=== PATIENT | female | born 1955 | race Caucasian/White ===

== ENCOUNTER 2022-08-22 13:38 | Inpatient (IN) | payer MEDICARE, OTHER ==
[~2022-08-22] VITALS: Ht 167.6 cm; Wt 54.9 kg
--- NOTE | 2022-08-22 14:40 | NUR ---
Attempted to give report to [facility], charge nurse stated the assigned nurse will call back for report.
--- NOTE | 2022-08-22 15:00 | NUR ---
Attempted to give telephone report to M[facility], there was no answer.
--- NOTE | 2022-08-22 15:15 | NUR ---
Gave report to AUGUSTINE Shen.
--- NOTE | 2022-08-22 15:35 | NUR ---
Patient transferred to MHU accompanied by RN.
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
[2022-08-22] MEDS ORDERED: MAGNESIUM HYDROXIDE 30 ML LIQUID UDC PO PRN (16:30)
[2022-08-22] MEDS ORDERED: MAG HYDROX/AL HYDROX/SIMETH 30 ML LIQUID UDC PO PRN (16:30)
[2022-08-22 16:40] VITALS: BP 117/65
[2022-08-22] MEDS: LORAZEPAM 0.5 MG TABLET PO PRN (18:14)
[2022-08-22] MEDS: ACETAMINOPHEN 325 MG TABLET PO PRN (18:14)
[2022-08-22] MEDS ORDERED: QUET400T PO (18:38)
[2022-08-22] MEDS ORDERED: LAMO100T2 PO (18:38)
[2022-08-22] MEDS ORDERED: TIZA4TAB11 PO (18:38)
[2022-08-22] MEDS ORDERED: GABA300C PO (18:38)
[2022-08-22] MEDS ORDERED: AMIT50TA17 PO (18:38)
[2022-08-22] MEDS ORDERED: HYDR4TAB4 PO (18:38)
[2022-08-22 20:03] VITALS: BP 126/64
[2022-08-23] MEDS: ACETAMINOPHEN 325 MG TABLET PO PRN (01:55)
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
[2022-08-23 07:23] LABS: HEMATOCRIT 34.9 % (31.2-41.9); MEAN CORPUSCULAR HEMOGLOBIN 34.7 uug (24.7-32.8); MEAN CORPUSCULAR VOLUME 98.7 fL (75.5-95.3); PLATELET COUNT (AUTO) 382 K/uL (179-408)
[2022-08-23 07:30] VITALS: BP 149/69
[2022-08-23 07:39] LABS: BILIRUBIN,TOTAL 0.4 mg/dL (0.2-1.0); CREATININE 0.7 mg/dL (0.6-1.3); POTASSIUM 3.9 mmol/L (3.5-5.1); TOTAL PROTEIN, SERUM 6.8 g/dL (6.4-8.2)
[2022-08-23] MEDS ORDERED: GABAPENTIN 300 MG CAPSULE PO SCH (09:00)
[2022-08-23] MEDS ORDERED: LAMOTRIGINE 100 MG TABLET PO ONE (09:00)
[2022-08-23] MEDS: TIZANIDINE HCL 4 MG TABLET PO SCH ×3 (09:14→17:53)
[2022-08-23] MEDS: GABAPENTIN 300 MG CAPSULE PO SCH ×3 (09:14→17:53)
[2022-08-23] MEDS ORDERED: HYDROMORPHONE HCL PO PRN (11:30)
[2022-08-23] MEDS ORDERED: ALBU2.5V38 IH (13:50)
[2022-08-23] MEDS ORDERED: ENOX30DI SUBCUT (13:50)
--- NOTE | 2022-08-23 14:56 | NUR ---
PT APOLOGIZED TO NURSE AND HAD DIET CHANGED TO MECHANICAL SOFT DIET. NO SIGNS OF DISTRESS OR ASPIRATION FROM FOOD. PT IS MORE COOPERATIVE WITH ROOM MATE AND STAFF. PT IS NOT ISOLATIVE BEFORE. PT WAS SEEN BY DR. ROY HE CONTINUE MEDICATION FROM HOSPITAL . FALL AND SAFETY PRECAUTION MAINTAINED. WILL ENDORSE TO EVENING NURSE.
--- NOTE | 2022-08-23 15:12 | NUR ---
TRISTAN Family Contact: TRISTAN briefly spoke with pt's son, Ac ([phone]). It is unclear at this time if pt is cleared to return home on her own. TRISTAN will continue to contact Ac.
[2022-08-23 16:00] VITALS: BP 113/51
[2022-08-23] MEDS: LAMOTRIGINE 100 MG TABLET PO SCH (17:53)
[2022-08-23] MEDS: QUETIAPINE FUMARATE 100 MG TABLET PO SCH ×2 (17:53→21:20)
[2022-08-23 20:14] VITALS: BP 150/55
[2022-08-24] MEDS: HYDROMORPHONE HCL 2 MG TABLET PO PRN ×2 (01:24→22:29)
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
[2022-08-24] MEDS: ACETAMINOPHEN 325 MG TABLET PO PRN ×2 (03:02→14:30)
[2022-08-24 07:30] VITALS: BP 128/68
[2022-08-24] MEDS: LORAZEPAM 0.5 MG TABLET PO PRN (07:30)
[2022-08-24] MEDS: TIZANIDINE HCL 4 MG TABLET PO SCH ×3 (11:47→17:11)
[2022-08-24] MEDS: GABAPENTIN 300 MG CAPSULE PO SCH ×3 (11:47→17:11)
[2022-08-24] MEDS: LAMOTRIGINE 100 MG TABLET PO SCH ×2 (11:47→17:11)
[2022-08-24] MEDS: QUETIAPINE FUMARATE 100 MG TABLET PO SCH ×2 (11:48→21:07)
[2022-08-24 16:00] VITALS: BP 100/47
--- NOTE | 2022-08-24 18:39 | NUR ---
0730-REC'D PATIENT IN BED, AWAKE, ALERT, ABLE TO VERBALIZE HER NEEDS, FOLLOWS SIMPLE DIRECTIONS. DENIES ANY PAIN AT THIS TIME. OFFERED ORAL FLUIDS AND TAKEN WELL. PATIENT AMBULATES AD INDIO IN HALLWAY UNIT, SELF CARE, CONTINENT W/ BRP, ASSIST NEEDED. ENCOURAGED AND OFFERED ASSIST NEEDED. WILL MONITOR CLOSELY. 0900-SCHEDULED/DUE MEDICATION ADMINISTERED WITH NO ASE NOTED, ORAL FLUIDS TAKEN WELL. PATIENT ATE HER BREAKFAST, DENIES GI DISCOMFORT AND AMBULATORY IN THE HALLWAY, VISIBLE IN UNIT AT ALL TIMES. 1500-PATIENT OOB, PARTICIPATING IN PLANNED ACTIVITIES WITH OTHER PATIENTS IN THE UNIT, SOCIALIZES WITH NURSING STAFF, WHEREABOUTS MONITOR FOR SAFETY. ASSIST NEEDED DURING SHIFT. PATIENT COOPERATIVE WITH CARE AND TREATMENT. ALL NEEDS ANTICIPATED AND MET, NO UNUSUAL EVENTS DURING SHIFT. ENDORSED TO INCOMING NOC RELIEVING NURSE.
[2022-08-24 20:18] VITALS: BP 101/52
--- NOTE | 2022-08-24 20:30 | NUR ---
RECEIVED PATIENT SLEEPING IN HER BED. SHE IS EASILY AROUSABLE UPON APPROACHED. SHE IS A/O X 4 ABLE TO VERBALIZED HER FEELINGS. SHE DENIED SI/HI//AH/ SHE IS NOTED HYPERVERBAL AT TIMES BUT SHE IS REDIRECTABLE. SHE WAS GIVEN PO FLUIDS AND SNACKS. HER V/S ARE STABLE, SHE IS REASSURED FOR HER SAFETY. SAFETY AND FALL PRECAUTIONS ARE IN PLACE. WILL CONTINUE TO MONITOR.
[2022-08-25] MEDS: ZOLPIDEM 5 MG TABLET PO PRN (00:40)
[2022-08-25] MEDS: HYDROMORPHONE HCL 2 MG TABLET PO PRN ×2 (06:28→14:19)
[2022-08-25 07:30] VITALS: BP 131/64
[2022-08-25] MEDS: QUETIAPINE FUMARATE 100 MG TABLET PO SCH ×2 (08:45→20:58)
[2022-08-25] MEDS: LAMOTRIGINE 100 MG TABLET PO SCH ×2 (08:45→17:03)
[2022-08-25] MEDS: GABAPENTIN 300 MG CAPSULE PO SCH ×3 (08:45→17:03)
[2022-08-25] MEDS: TIZANIDINE HCL 4 MG TABLET PO SCH ×3 (09:15→17:03)
[2022-08-25] MEDS: ENSURE ENLIVE (VAN) 240 ML LIQUID PO SCH (09:15)
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
--- NOTE | 2022-08-25 12:14 | NUR ---
TRISTAN Initial Discharge Note: [place] [address] [place] [address] ([phone]). TRISTAN spoke with pt's son, Ac regarding pt's discharge plan. It is unclear at this time if pt is cleared to return home on her own. TRISTAN will continue to work with pt, family and MD to ensure a safe and proper discharge plan.
--- NOTE | 2022-08-25 12:16 | NUR ---
Firearms Report: [employer] Art Teacher completed and submitted a [employer] firearms report for 5150 a danger to others and grave disability certifications. A copy of report has been placed in patient chart.
[2022-08-25 16:54] VITALS: BP 152/75
[2022-08-25] MEDS: ACETAMINOPHEN 325 MG TABLET PO PRN ×2 (18:23→20:58)
[2022-08-25 20:43] VITALS: BP 145/75
[2022-08-26] MEDS: LORAZEPAM 0.5 MG TABLET PO PRN ×2 (00:29→06:57)
[2022-08-26] MEDS: ZOLPIDEM 5 MG TABLET PO PRN (00:30)
--- NOTE | 2022-08-26 03:42 | NUR ---
Although pt is AOx3, pt can display anxiousness at times. Education is needed to help alleviate this condition. Pt complained of headaches during the first half of this shift. Gave Tylenol prn. Although medication was effective, pt also asked for medications to help treat her anxiety and sleeplessness. Gave Ativan and Ambien prn. Medications were effective, and these issues were corrected during this shift.
[2022-08-26] MEDS: ACETAMINOPHEN 325 MG TABLET PO PRN (06:57)
[2022-08-26 08:04] VITALS: BP 169/81
[2022-08-26] MEDS: GABAPENTIN 300 MG CAPSULE PO SCH ×3 (08:25→16:46)
[2022-08-26] MEDS: QUETIAPINE FUMARATE 100 MG TABLET PO SCH ×2 (08:25→20:18)
[2022-08-26] MEDS: LAMOTRIGINE 100 MG TABLET PO SCH ×2 (08:25→16:47)
[2022-08-26] MEDS: TIZANIDINE HCL 4 MG TABLET PO SCH ×3 (08:25→16:47)
[2022-08-26] MEDS: ENSURE ENLIVE (VAN) 240 ML LIQUID PO SCH (08:38)
--- NOTE | 2022-08-26 14:20 | NUR ---
GPS: Nursing Notes: Thought Disorder: Patient is awake and responding to her name, depressed mood and anxious affect, gets easily anxious when redirected, needs prompting to participate in therapeutic groups, unable to formulate a viable plan for self care, continue to monitor for safety, continue with treatment plan.
[2022-08-26 16:14] VITALS: BP 112/48
[2022-08-26 19:53] VITALS: BP 152/67
[2022-08-26] MEDS: HYDROMORPHONE HCL 2 MG TABLET PO PRN (21:16)
[2022-08-27] MEDS: ACETAMINOPHEN 325 MG TABLET PO PRN ×3 (00:10→20:44)
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
[2022-08-27] MEDS: LORAZEPAM 0.5 MG TABLET PO PRN ×2 (05:00→20:44)
[2022-08-27 08:04] VITALS: BP 154/78
[2022-08-27] MEDS: LAMOTRIGINE 100 MG TABLET PO SCH ×2 (08:35→16:28)
[2022-08-27] MEDS: QUETIAPINE FUMARATE 100 MG TABLET PO SCH ×2 (08:35→20:44)
[2022-08-27] MEDS: TIZANIDINE HCL 4 MG TABLET PO SCH ×3 (08:35→16:28)
[2022-08-27] MEDS: GABAPENTIN 300 MG CAPSULE PO SCH ×3 (08:36→16:28)
[2022-08-27] MEDS: ENSURE ENLIVE (VAN) 240 ML LIQUID PO SCH (08:36)
--- NOTE | 2022-08-27 15:40 | NUR ---
GPS: Nursing Notes: Thought Disorder: Patient is awake and responding to her name, compliant with her medications, following staff directions, depressed mood and anxious affect, poor impulse control, believes that her roommate does not want her in the room, guarded, unable to formulate a viable plan for self care, impaired judgment, gets easily irritable when redirected, continue to monitor for safety, continue with treatment plan.
[2022-08-27 19:57] VITALS: BP 146/56
[2022-08-28] MEDS: ZOLPIDEM 5 MG TABLET PO PRN (02:06)
[2022-08-28 08:14] VITALS: BP 133/73
[2022-08-28] MEDS: ENSURE ENLIVE (VAN) 240 ML LIQUID PO SCH (08:27)
[2022-08-28] MEDS: TIZANIDINE HCL 4 MG TABLET PO SCH ×3 (08:27→17:21)
[2022-08-28] MEDS: GABAPENTIN 300 MG CAPSULE PO SCH ×3 (08:27→17:21)
[2022-08-28] MEDS: QUETIAPINE FUMARATE 100 MG TABLET PO SCH ×2 (08:27→20:47)
[2022-08-28] MEDS: LAMOTRIGINE 100 MG TABLET PO SCH ×2 (08:27→17:21)
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
[2022-08-28] MEDS: ACETAMINOPHEN 325 MG TABLET PO PRN (10:06)
[2022-08-28] MEDS: HYDROMORPHONE HCL 2 MG TABLET PO PRN ×2 (12:28→20:46)
--- NOTE | 2022-08-28 14:15 | NUR ---
GPS: Nursing Notes: Thought Disorder: Patient is awake and responding to her name, depressed mood and anxious affect, low energy level, participating in therapeutic groups, poor impulse control at times, unable to formulate a viable plan for self care, gets easily irritable when redirected, continue to monitor for safety, continue with treatment plan.
[2022-08-28 15:57] VITALS: BP 120/55
[2022-08-28 19:42] VITALS: BP 142/73
[2022-08-29] MEDS: LORAZEPAM 0.5 MG TABLET PO PRN ×2 (01:42→23:37)
[2022-08-29] MEDS: ZOLPIDEM 5 MG TABLET PO PRN ×2 (01:42→23:37)
[2022-08-29] MEDS: HYDROMORPHONE HCL 2 MG TABLET PO PRN (06:14)
[2022-08-29 08:12] VITALS: BP 127/62
[2022-08-29] MEDS: QUETIAPINE FUMARATE 100 MG TABLET PO SCH ×2 (08:52→21:14)
[2022-08-29] MEDS: TIZANIDINE HCL 4 MG TABLET PO SCH ×3 (08:52→17:09)
[2022-08-29] MEDS: GABAPENTIN 300 MG CAPSULE PO SCH ×3 (08:52→17:09)
[2022-08-29] MEDS: LAMOTRIGINE 100 MG TABLET PO SCH ×2 (08:52→17:09)
[2022-08-29] MEDS: ENSURE ENLIVE (VAN) 240 ML LIQUID PO SCH (08:53)
[2022-08-29] MEDS: ACETAMINOPHEN 325 MG TABLET PO PRN ×2 (11:43→21:08)
--- NOTE | 2022-08-29 12:03 | NUR ---
TRISTAN Family Contact: TRISTAN spoke with pt's son, Ac ([phone]) and discussed pt's discharge plan. Ac stated he can provide transportation for the pt's return home upon discharge everyday before 11am due to his work schedule. Ac is aware and agreeable with pt's current treatment and discharge plan.
--- NOTE | 2022-08-29 12:08 | NUR ---
Patient had court hearing today, branch sales and service representative gave 14 Day probable cause for GD only.
[2022-08-29 16:02] VITALS: BP 120/58
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
--- NOTE | 2022-08-29 17:25 | NUR ---
GPS: Nursing Notes: Thought Disorder: Patient is awake and responding to her name, impaired judgment, gets easily anxious when redirected, believes that water is coming from the window and the wall of her room, redirected during shift, cooperative with nursing care, participating in therapeutic, depressed mood and anxious affect, unable to formulate a viable plan for self care, continue to monitor for safety, continue with treatment plan.
[2022-08-29 20:17] VITALS: BP 139/64
[2022-08-30 07:30] VITALS: BP 137/68
[2022-08-30] MEDS: QUETIAPINE FUMARATE 100 MG TABLET PO SCH ×2 (09:00→20:36)
[2022-08-30] MEDS: GABAPENTIN 300 MG CAPSULE PO SCH ×3 (09:45→17:43)
[2022-08-30] MEDS: LAMOTRIGINE 100 MG TABLET PO SCH ×2 (09:45→17:43)
[2022-08-30] MEDS: ENSURE ENLIVE (VAN) 240 ML LIQUID PO SCH (09:45)
[2022-08-30] MEDS: TIZANIDINE HCL 4 MG TABLET PO SCH ×3 (09:47→17:43)
[2022-08-30] MEDS: HYDROMORPHONE HCL 2 MG TABLET PO PRN (09:53)
[2022-08-30] MEDS: ACETAMINOPHEN 325 MG TABLET PO PRN ×2 (14:36→20:36)
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
[2022-08-30 16:00] VITALS: BP 146/68
[2022-08-30 19:48] VITALS: BP 122/83
[2022-08-31] MEDS: ZOLPIDEM 5 MG TABLET PO PRN ×2 (01:39→23:03)
[2022-08-31 07:30] VITALS: BP 150/69
[2022-08-31] MEDS: LAMOTRIGINE 100 MG TABLET PO SCH ×2 (09:11→17:09)
[2022-08-31] MEDS: TIZANIDINE HCL 4 MG TABLET PO SCH ×3 (09:11→17:09)
[2022-08-31] MEDS: GABAPENTIN 300 MG CAPSULE PO SCH ×3 (09:11→17:09)
[2022-08-31] MEDS: ENSURE ENLIVE (VAN) 240 ML LIQUID PO SCH (09:11)
[2022-08-31] MEDS: QUETIAPINE FUMARATE 100 MG TABLET PO SCH ×2 (13:19→20:10)
[2022-08-31 16:00] VITALS: BP 143/77
[2022-08-31] MEDS: ACETAMINOPHEN 325 MG TABLET PO PRN (16:04)
[2022-08-31] MEDS: HYDROMORPHONE HCL 2 MG TABLET PO PRN (18:27)
[2022-08-31 20:09] VITALS: BP 131/59
[2022-09-01] MEDS: HYDROMORPHONE HCL 2 MG TABLET PO PRN ×3 (01:12→18:12)
[2022-09-01] MEDS: ACETAMINOPHEN 325 MG TABLET PO PRN (04:11)
--- NOTE | 2022-09-01 06:23 | NUR ---
GPS: Pt.slept poorly last night. Slept for only 2.15 last night despite receiving a sleeping pill for insomnia. Medicated prn for pain with relief. Safe environment provided. Seizure precautions observed. Needs attended. Behavior monitoring continues.
[2022-09-01 07:30] VITALS: BP 147/75
[2022-09-01] MEDS: GABAPENTIN 300 MG CAPSULE PO SCH ×3 (08:26→16:46)
[2022-09-01] MEDS: LAMOTRIGINE 100 MG TABLET PO SCH ×2 (08:26→16:46)
[2022-09-01] MEDS: ENSURE ENLIVE (VAN) 240 ML LIQUID PO SCH (08:27)
[2022-09-01] MEDS: TIZANIDINE HCL 4 MG TABLET PO SCH ×3 (08:27→16:53)
[2022-09-01] MEDS: QUETIAPINE FUMARATE 100 MG TABLET PO SCH ×2 (12:46→20:07)
[2022-09-01 20:04] VITALS: BP 125/45
[2022-09-01] MEDS: ZOLPIDEM 5 MG TABLET PO PRN (23:31)
--- NOTE | 2022-09-02 06:26 | NUR ---
GPS: Pt.slept 5.45 last night. Denies pain at this time when asked. Safe environment provided. Needs attended. Will continue to monitor.
[2022-09-02 07:51] VITALS: BP 158/78
[2022-09-02] MEDS: GABAPENTIN 300 MG CAPSULE PO SCH ×3 (08:47→17:00)
[2022-09-02] MEDS: LAMOTRIGINE 100 MG TABLET PO SCH ×2 (08:47→17:00)
[2022-09-02] MEDS: ENSURE ENLIVE (VAN) 240 ML LIQUID PO SCH (08:50)
[2022-09-02] MEDS: TIZANIDINE HCL 4 MG TABLET PO SCH ×3 (08:57→17:00)
[2022-09-02] MEDS: HYDROMORPHONE HCL 2 MG TABLET PO PRN ×3 (08:57→21:41)
[2022-09-02 09:00] VITALS: BP 126/62
[2022-09-02] MEDS: QUETIAPINE FUMARATE 100 MG TABLET PO SCH ×2 (12:31→21:12)
[2022-09-02 16:33] VITALS: BP 136/60
--- NOTE | 2022-09-02 18:37 | NUR ---
patient remain calm and cooperative. Dilaudid 2 mg po prn for pain given x2 through the shift ,and effective.continue plan of care.
[2022-09-02 20:00] VITALS: BP 124/70
--- NOTE | 2022-09-02 20:45 | NUR ---
RECEIVED PATIENT IN HER ROOM IN BED. SHE IS NOTED A/O X 3 ABLE TO VERBALIZED HER FEELINGS. SHE IS ABLE TO AMBULATE WITH STEADY GAIT. PATIENT NOTED FIXED ON HER PHYSICAL PAIN AND SHE KEEPS REMAINING THIS PRODUCE DEPARTMENT SUPERVISOR THAT SHE WILL SOON BE DUE FOR DILAUDID, AND THAT SHE USES MARIJUANA AT HOME FOR HER PAINS. SHE IS ALSO FIXED ON PEOPLE WHO THINK THEY TREATED HER "BAD" OR DID HER "WRONG". SHE IS INTRUSIVE AND DEMANDING AT TIMES BUT SHE IS REDIRECTABLE. SHE DENIED SI/HI/VH/AH SHE IS ABLE TO VERBALLY CFS. PATIENT IS REASSURED FOR HER SAFETY. SAFETY AND FALL PRECAUTIONS ARE IN PLACE. SHE WAS GIVEN PO FLUIDS AND SNACKS. ALL HER NEEDS ARE MET. WILL CONTINUE TO MONITOR.
[2022-09-03] MEDS: ZOLPIDEM 5 MG TABLET PO PRN ×2 (00:23→21:24)
[2022-09-03] MEDS: LAMOTRIGINE 100 MG TABLET PO SCH ×2 (08:22→16:21)
[2022-09-03] MEDS: TIZANIDINE HCL 4 MG TABLET PO SCH ×3 (08:22→16:21)
[2022-09-03] MEDS: GABAPENTIN 300 MG CAPSULE PO SCH ×3 (08:22→16:21)
[2022-09-03] MEDS: ENSURE ENLIVE (VAN) 240 ML LIQUID PO SCH (08:22)
[2022-09-03 08:23] VITALS: BP 153/73
[2022-09-03] MEDS: HYDROMORPHONE HCL 2 MG TABLET PO PRN (09:05)
[2022-09-03] MEDS: QUETIAPINE FUMARATE 100 MG TABLET PO SCH ×2 (12:24→21:23)
[2022-09-03 16:15] VITALS: BP 117/55
[2022-09-03 20:01] VITALS: BP 107/54
[2022-09-03] MEDS ORDERED: MIRTAZAPINE 15 MG TABLET PO SCH (21:00)
[2022-09-03] MEDS: LORAZEPAM 0.5 MG TABLET PO PRN (21:24)
--- NOTE | 2022-09-04 04:50 | NUR ---
Although overall compliant with care, pt still requests her prn medications Ativan and Ambien around 2200 hours.
[2022-09-04] MEDS: ENSURE ENLIVE (VAN) 240 ML LIQUID PO SCH (08:30)
[2022-09-04] MEDS: GABAPENTIN 300 MG CAPSULE PO SCH ×3 (08:30→17:20)
[2022-09-04] MEDS: LAMOTRIGINE 100 MG TABLET PO SCH ×2 (08:30→17:20)
[2022-09-04] MEDS: TIZANIDINE HCL 4 MG TABLET PO SCH ×3 (08:30→17:20)
[2022-09-04 09:05] VITALS: BP 140/87
[2022-09-04] MEDS: HYDROMORPHONE HCL 2 MG TABLET PO PRN (09:25)
[2022-09-04] MEDS: QUETIAPINE FUMARATE 100 MG TABLET PO SCH (12:16)
--- NOTE | 2022-09-04 15:10 | NUR ---
GPS: Nursing Note: Thought Disorder: Patient is awake and responding to her name, interactive with peers, participating in therapeutic groups, A/Ox4, compliant with her medications, gets easily anxious when redirected, believes that she is getting better, cooperative with nursing care, denies AH/VH, unable to formulate a viable plan for self care, continue to monitor for safety, continue with treatment plan.
--- NOTE | 2022-09-04 15:34 | NUR ---
TRISTAN Family Contact: TRISTAN spoke with pt's son, Ac [phone] and his partner Jesse [phone] regarding pt's discharge clearance for Sunday 9am by Ac's transportation home. Pt, Ac, and Jesse are aware and agreeable with the discharge plan.
[2022-09-04 16:16] VITALS: BP 134/74
[2022-09-04] MEDS: ACETAMINOPHEN 325 MG TABLET PO PRN (18:35)
[2022-09-04 19:45] VITALS: BP 118/69
[2022-09-04] MEDS: ZOLPIDEM 5 MG TABLET PO PRN (21:14)
[2022-09-04] MEDS: LORAZEPAM 0.5 MG TABLET PO PRN (21:14)
[2022-09-04] MEDS: QUETIAPINE FUMARATE 200 MG TABLET PO SCH (21:15)
[2022-09-04] MEDS: MIRTAZAPINE 15 MG TABLET PO SCH (21:15)
[2022-09-05 07:49] VITALS: BP 152/85
[2022-09-05] MEDS: GABAPENTIN 300 MG CAPSULE PO SCH ×3 (08:43→17:08)
[2022-09-05] MEDS: LAMOTRIGINE 100 MG TABLET PO SCH ×2 (08:43→17:08)
[2022-09-05] MEDS: TIZANIDINE HCL 4 MG TABLET PO SCH ×3 (08:43→17:07)
[2022-09-05] MEDS: ENSURE ENLIVE (VAN) 240 ML LIQUID PO SCH (08:44)
[2022-09-05] MEDS: HYDROMORPHONE HCL 2 MG TABLET PO PRN ×2 (08:59→13:25)
[2022-09-05] MEDS: QUETIAPINE FUMARATE 100 MG TABLET PO SCH (12:25)
[2022-09-05 15:14] VITALS: BP 114/71
--- NOTE | 2022-09-05 17:20 | NUR ---
GPS: Nursing Note: Thought Disorder: Received Patient awake and A/Ox3. Compliant with her medications and following staff directions. Patient gets easily anxious, but she is redirectable. Patient attends group activities and Interacts with peers. Patient denies AH/VH. Cooperative with Nursing Care, but unable to formulate viable plan for self care. Continue to monitor for safety, continue with treatment plan .
[2022-09-05 19:48] VITALS: BP 137/74
[2022-09-05] MEDS: LORAZEPAM 0.5 MG TABLET PO PRN (20:49)
[2022-09-05] MEDS: ZOLPIDEM 5 MG TABLET PO PRN (20:49)
[2022-09-05] MEDS: MIRTAZAPINE 15 MG TABLET PO SCH (20:49)
[2022-09-05] MEDS: QUETIAPINE FUMARATE 200 MG TABLET PO SCH (20:51)
[2022-09-06] MEDS: HYDROMORPHONE HCL 2 MG TABLET PO PRN ×2 (01:36→08:35)
[2022-09-06 07:30] VITALS: BP 151/70
--- NOTE | 2022-09-06 08:16 | NUR ---
TRISTAN Discharge Screener: TRISTAN completed a discharge screener for pt's discharge today.
--- NOTE | 2022-09-06 08:18 | NUR ---
TRISTAN Discharge Note: Pt will be discharged home located at [address] [place] [address] via pts sonNadia ([phone]) private vehicle transportation at 9AM. TRISTAN spoke with Ac who states they are ready to accept the patient today. Pt is aware and agreeable with discharge plan. Pt is alert and oriented x4 and is able to plan for self-care at this time. Pt denies any suicidal or homicidal ideation. Pt will follow-up with [facility] [place] [address] ([phone]) with psychiatrist, Dr. Cheung. Pt will follow-up with her outpatient tumbling instructor upon discharge. TRISTAN also provided pt with additional resources such as, [facility] [place] [address] ([phone]); [facility] located at [address] [place] [address], [address] [place] [address] ([phone]). Pt presents with calm mood and congruent affect. PHARMACY: [facility] [address] [place] [address] ([phone]).
[2022-09-06] MEDS: GABAPENTIN 300 MG CAPSULE PO SCH (08:35)
[2022-09-06] MEDS: TIZANIDINE HCL 4 MG TABLET PO SCH (08:35)
[2022-09-06] MEDS: LAMOTRIGINE 100 MG TABLET PO SCH (08:38)
[2022-09-06] MEDS: ENSURE ENLIVE (VAN) 240 ML LIQUID PO SCH (09:00)
--- NOTE | 2022-09-06 11:07 | NUR ---
Patient is being discharged home. Pt is being picked up by her son, Ac. Discharge instructions were given including follow up appointments and prescription medications. patient verbalizes understanding. Pt stated that she has supply of medications at home of the medications prescribed by baggagemaster.
== END 2022-09-06 11:45 | disposition home or self-care (01) | DRG 885 ==
LOC: ER 13:38 → GPS 15:00
PROVIDERS: ADMIT Psychiatry & Neurology Psychiatry; ATTEND Internal Medicine
DX: F29 Unspecified psychosis not due to a substance or known physiological condition (principal); G35 Multiple sclerosis; E78.5 Hyperlipidemia, unspecified; F32.A Depression, unspecified; G40.909 Epilepsy, unspecified, not intractable, without status epilepticus; G89.29 Other chronic pain; G43.909 Migraine, unspecified, not intractable, without status migrainosus; F22 Delusional disorders; D49.2 Neoplasm of unspecified behavior of bone, soft tissue, and skin
CPT/HCPCS: 36415; 85025; A4663